=== PATIENT | male | born 1995 | race Caucasian/White ===

== ENCOUNTER 2016-07-28 10:19 | Emergency (ER) | payer SELFPAY | END 2016-07-28 13:09 | disposition home or self-care (01) | LOC: EDBD 10:19 → FER 10:19 | DX: S39.012A Strain of muscle, fascia and tendon of lower back, initial encounter (principal); X50.9XXA Other and unspecified overexertion or strenuous movements or postures, initial encounter; Y92.69 Other specified industrial and construction area as the place of occurrence of the external cause; Y99.0 Civilian activity done for income or pay | CPT/HCPCS: 72100; 99283 ==